=== PATIENT | male | born 1970 | race Two or more races ===

== ENCOUNTER 2021-09-09 07:00 | Outpatient (CLI) | payer OTHER | END 2021-09-09 14:30 | disposition home or self-care (01) | LOC: LAB 07:00 → EDSEX 07:00 → LAB 14:30 | PROVIDERS: ATTEND General Practice | DX: E78.00 Pure hypercholesterolemia, unspecified (principal); I10 Essential (primary) hypertension ==

== ENCOUNTER 2022-04-04 08:15 | Outpatient (CLI) | payer OTHER | END 2022-04-04 08:19 | disposition home or self-care (01) | LOC: LAB 08:15 | PROVIDERS: ATTEND Specialist | DX: K73.1 Chronic lobular hepatitis, not elsewhere classified (principal); E78.00 Pure hypercholesterolemia, unspecified; E04.2 Nontoxic multinodular goiter; I10 Essential (primary) hypertension; N42.9 Disorder of prostate, unspecified; M10.9 Gout, unspecified ==

== ENCOUNTER 2022-10-09 06:50 | Outpatient (CLI) | payer OTHER | END 2022-10-09 06:52 | disposition home or self-care (01) | LOC: LAB 06:50 | PROVIDERS: ATTEND Specialist | DX: R73.01 Impaired fasting glucose (principal); I10 Essential (primary) hypertension; E78.9 Disorder of lipoprotein metabolism, unspecified ==

== ENCOUNTER 2023-04-28 07:08 | Outpatient (CLI) | payer OTHER ==
[2023-04-28 08:05] LABS: HEMATOCRIT 44.2 % (39.0-48.0); HEMOGLOBIN 15.5 g/dL (13-16.00); MEAN CELL VOLUME 94.5 fL (80.0-100.00); MEAN CORPUSCULAR HEMOGLOBIN 33.2 pg (27.00-32.0); MEAN CORPUSCULAR HGB CONC 35.2 g/dl (32.0-36.0); PLATELET COUNT 175 K/uL (150-450); RED BLOOD COUNT 4.67 M/uL (4.00-6.00); RED CELL DISTRIBUTION WIDTH 13.5 % (11.5-14.5)
[2023-04-28 08:34] LABS: BILIRUBIN TOTAL 0.7 mg/dL (0.3-1.2); CALCIUM 9.3 mg/dL (8.5-10.1); CHOL HDL RATIO 5.8 (0-5.0); CREATININE SERUM 0.79 mg/dL (0.70-1.30); GFR 103.4; GLOBULINA 3.3 G/DL (2.4-3.5); POTASSIUM 4.67 mEq/L (3.5-5.1); PROSTATIC SPECIFIC ANTIGEN 0.567 NG/ML (0.010-4.00); TOTAL PROTEIN 7.3 gm/dL (6.4-8.2)
== END 2023-04-28 07:12 | disposition home or self-care (01) ==
LOC: LAB 07:08
PROVIDERS: ATTEND Specialist
DX: N42.9 Disorder of prostate, unspecified (principal); I10 Essential (primary) hypertension; E78.2 Mixed hyperlipidemia

== ENCOUNTER 2023-09-22 12:23 | Emergency (ER) | payer OTHER ==
[~2023-09-22] VITALS: Ht 170.2 cm; Wt 81.6 kg
[2023-09-22] MEDS ORDERED: COZAAR50 MG (12:48)
[2023-09-22] MEDS ORDERED: CEFTRIAXONE SODIUM 1,000 MG VIAL ONE (15:13)
[2023-09-22] MEDS ORDERED: CEFTRIAXONE SODIUM 1,000 MG VIAL IM ONE (15:15)
== END 2023-09-22 15:24 | disposition home or self-care (01) ==
LOC: ER 12:24
DX: H66.91 Otitis media, unspecified, right ear (principal); I10 Essential (primary) hypertension

== ENCOUNTER 2023-10-22 08:25 | Outpatient (CLI) | payer OTHER ==
[~2023-10-22 08:25] MED LIST: COZAAR50 MG
[2023-10-22 08:59] LABS: HEMATOCRIT 43.2 % (39.0-48.0); HEMOGLOBIN 15.1 g/dL (13-16.00); MEAN CELL VOLUME 94.6 fL (80.0-100.00); MEAN CORPUSCULAR HGB CONC 34.8 g/dl (32.0-36.0); PLATELET COUNT 158 K/uL (150-450); RED BLOOD COUNT 4.57 M/uL (4.00-6.00); RED CELL DISTRIBUTION WIDTH 13.2 % (11.5-14.5)
[2023-10-22 09:40] LABS: ALBUMIN 3.9 gm/dL (3.4-5.0); BILIRUBIN TOTAL 0.66 mg/dL (0.3-1.2); CALCIUM 9.2 mg/dL (8.5-10.1); CHOL HDL RATIO 5.3 (0-5.0); CREATININE SERUM 0.74 mg/dL (0.70-1.30); GFR 111.07; GLOBULINA 3.7 G/DL (2.4-3.5); POTASSIUM 4.94 mEq/L (3.5-5.1); TOTAL PROTEIN 7.6 gm/dL (6.4-8.2)
== END 2023-10-22 08:49 | disposition home or self-care (01) ==
LOC: LAB 08:25
DX: E78.00 Pure hypercholesterolemia, unspecified (principal); I10 Essential (primary) hypertension

== ENCOUNTER 2024-04-18 06:20 | Outpatient (CLI) | payer OTHER ==
[2024-04-18 08:55] LABS: ALBUMIN 3.7 gm/dL (3.4-5.0); BILIRUBIN TOTAL 0.84 mg/dL (0.3-1.2); CALCIUM 9.1 mg/dL (8.5-10.1); CHOL HDL RATIO 4.7 (0-5.0); CREATININE SERUM 0.82 mg/dL (0.70-1.30); GFR 98.66; GLOBULINA 3.8 G/DL (2.4-3.5); POTASSIUM 4.46 mEq/L (3.5-5.1); PROSTATIC SPECIFIC ANTIGEN 0.98 NG/ML (0.010-4.00); TOTAL PROTEIN 7.5 gm/dL (6.4-8.2); TSH 1.33 uIU/mL (0.358-3.74)
== END 2024-04-18 06:23 | disposition home or self-care (01) ==
LOC: LAB 06:20
DX: E78.00 Pure hypercholesterolemia, unspecified (principal); R73.9 Hyperglycemia, unspecified; E06.3 Autoimmune thyroiditis; N42.9 Disorder of prostate, unspecified